=== PATIENT | female | born 1980 | race African-American/Black ===

== ENCOUNTER 2016-10-31 10:30 | Emergency (ER) | payer MEDICAID ==
[~2016-10-31] VITALS: Ht 157.5 cm; Wt 58.0 kg
[2016-10-31] MEDS ORDERED: KETOROLAC 60MG/2ML VIAL IM ONE (12:15)
[2016-10-31 13:10] VITALS: BP 128/72
[2016-10-31 13:29] LABS: CLARITY URINE CLEAR (CLEAR); COLOR URINE YELLOW (YELLOW); GLUCOSE URINE NEGATIVE (NEGATIVE); KETONES URINE NEGATIVE (NEGATIVE); LEUKOCYTE ESTERASE URINE NEGATIVE (NEGATIVE); NITRITE URINE NEGATIVE (NEGATIVE); OCCULT BLOOD URINE 3+ (NEGATIVE); PH URINE 6.5 (4.5-8.0); PROTEIN URINE NEGATIVE (NEGATIVE); SPECIFIC GRAVITY URINE 1.007 (1.005-1.030); UROBILINOGEN URINE 0.2 E.U./dL (0.2-1.0)
[2016-10-31 13:53] LABS: SQUAMOUS EPITHELIAL CELL URINE 3+ /lpf (RARE/1+); WBC URINE 0-2 /hpf (0-2)
[2016-10-31 13:54] LABS: BACTERIA URINE 2+; RBC URINE NONE SEEN /hpf (0-2)
== END 2016-10-31 13:20 | disposition left against medical advice (07) ==
LOC: ER 10:45
DX: N75.0 Cyst of Bartholin's gland (principal); F17.210 Nicotine dependence, cigarettes, uncomplicated; F12.10 Cannabis abuse, uncomplicated; Z88.0 Allergy status to penicillin; Z98.890 Other specified postprocedural states
CPT/HCPCS: 81001; 81025; 96372; 99283; J1885

== ENCOUNTER 2016-11-22 23:27 | Emergency (ER) | payer MEDICAID ==
[~2016-11-22] VITALS: Ht 167.6 cm; Wt 60.0 kg
[2016-11-23] MEDS ORDERED: KETOROLAC 60MG/2ML VIAL IM ONE (00:30)
[2016-11-23 03:00] VITALS: BP 127/80
== END 2016-11-23 03:57 | disposition home or self-care (01) ==
LOC: ER 23:49
DX: S90.811A Abrasion, right foot, initial encounter (principal); S50.312A Abrasion of left elbow, initial encounter; S50.311A Abrasion of right elbow, initial encounter; S80.212A Abrasion, left knee, initial encounter; S80.211A Abrasion, right knee, initial encounter; Z88.0 Allergy status to penicillin; Z98.890 Other specified postprocedural states; Y08.89XA Assault by other specified means, initial encounter; Y93.89 Activity, other specified; Y99.8 Other external cause status; Y92.89 Other specified places as the place of occurrence of the external cause
CPT/HCPCS: 73610; 73630; 96372; 99284; J1885

== ENCOUNTER 2017-03-21 13:29 | Emergency (ER) | payer MEDICAID ==
[~2017-03-21] VITALS: Ht 157.5 cm; Wt 62.0 kg
[2017-03-21 17:07] VITALS: BP 129/75
== END 2017-03-21 18:42 | disposition home or self-care (01) ==
LOC: ER 17:29
DX: T76.21XA Adult sexual abuse, suspected, initial encounter (principal); F17.200 Nicotine dependence, unspecified, uncomplicated; F12.10 Cannabis abuse, uncomplicated; Z88.0 Allergy status to penicillin; Z98.890 Other specified postprocedural states; Y92.89 Other specified places as the place of occurrence of the external cause
CPT/HCPCS: 99281; Z7610; 99283